=== PATIENT | male | born 1980 | race Caucasian/White ===

== ENCOUNTER 2022-01-14 08:34 | Emergency (ER) | payer OTHER ==
[~2022-01-14] VITALS: Ht 182.9 cm; Wt 127.0 kg
[2022-01-14 08:41] VITALS: BP_SYST 161
--- NOTE | 2022-01-14 08:44 | NUR ---
Pt to bed #5 BIB[facility] BLS due to pt c/o feeling dizziness and blurred vision while driving to work [facility]. Pt is A&Ox4. Skin intact. BP at 161/96, other vitals stable. Connected to block and case maker. NKA. No known medical conditions pt is aware of. Ambualtory with steady gait Bed in lowest position. Accucheck done by medics and results were 108.
--- NOTE | 2022-01-14 08:55 | NUR ---
PT STABLE, NAD, ED AT BEDSIDE FOR ASSESSMENT
[2022-01-14] MEDS ORDERED: MECLIZINE HCL 25 MG TABLET (ANITVERT) PO ONE (09:15)
[2022-01-14] MEDS ORDERED: MECL-160 PO ×2 (09:23→10:09)
--- NOTE | 2022-01-14 10:00 | NUR ---
rec'd report from offgoing nurse initiation assessment done negative pt denies pain/discomfort
--- NOTE | 2022-01-14 10:15 | NUR ---
pt voided 1000ml cl cl pale urine via urinal u/a sent to lab
--- NOTE | 2022-01-14 10:23 | NUR ---
pt discharge to home discharge teaching given with prescription teaching also voiced his understanding well condition stable denies pain/discomfort at this time
[2022-01-14 10:28] VITALS: BP_SYST 130
== END 2022-01-14 10:23 | disposition home or self-care (01) ==
LOC: SED 08:34
DX: H81.399 Other peripheral vertigo, unspecified ear (principal)
CPT/HCPCS: 99283; J8597